=== PATIENT | female | born 1995 | race Caucasian/White ===

== ENCOUNTER 2018-09-06 17:15 | Emergency (ER) | payer OTHER ==
[~2018-09-06] VITALS: Ht 157.5 cm; Wt 44.0 kg
[2018-09-06] MEDS ORDERED: NORFLEX100 MG PO (18:05)
[2018-09-06] MEDS ORDERED: TRAMADOL 50 MG50 MG PO (18:05)
[2018-09-06 18:36] VITALS: BP 118/74
== END 2018-09-06 18:25 ==
LOC: ER 17:15
DX: M54.2 Cervicalgia (principal); M54.5 Low back pain; M54.6 Pain in thoracic spine; F17.210 Nicotine dependence, cigarettes, uncomplicated; V89.2XXA Person injured in unspecified motor-vehicle accident, traffic, initial encounter; Y92.89 Other specified places as the place of occurrence of the external cause; Y93.89 Activity, other specified; Y99.8 Other external cause status